=== PATIENT | female | born 1960 | race Caucasian/White ===

== ENCOUNTER 2024-12-26 13:26 | Outpatient (OUT) | payer SELFPAY | END 2024-12-26 13:27 | disposition home or self-care (01) | PROVIDERS: PCP Nurse Practitioner Family; Visit Provider Nurse Practitioner Family | DX: R68.84 Jaw pain (principal); M26.609 Unspecified temporomandibular joint disorder, unspecified side; M26.603 Bilateral temporomandibular joint disorder, unspecified | CPT/HCPCS: 70330 ==